=== PATIENT | female | born 1995 | race Caucasian/White ===

== ENCOUNTER 2017-04-10 11:33 | Emergency (ER) | payer OTHER ==
[~2017-04-10] VITALS: Ht 152.4 cm; Wt 55.1 kg
[2017-04-10 11:34] VITALS: BP 153/94
--- NOTE | 2017-04-10 11:35 | NUR ---
PT [id number] WITH EVEN AND STEADY GAIT; RR EVEN AND UNLABORED; PT TO LOBBY AWAITING OPEN BED.
--- NOTE | 2017-04-10 13:09 | NUR ---
PATIENT WALKED TO BED 11
--- NOTE | 2017-04-10 13:23 | NUR ---
Pt placed in room 11, here for anterior chest wall pain 10/10 heavy in sensation, started in the last hour or two while doing nothing with mild sob, pain non radaiting-denies any numbness/tingling, no fever/chills. Resp even and unlabored, in NAD. skin w/d/i. denies any medical history or previous episodes of chest pain. waiting for ER MD mosqueda. Mother atbedside, pt instructed to provide urine specimen, cup given.
--- NOTE | 2017-04-10 14:31 | NUR ---
URINE COLLETED, NEG FOR PREG, DIPSTICK RECORDED
--- NOTE | 2017-04-10 15:42 | NUR ---
Patient discharged with v/s stable. Written and verbal after care instructions given and explained. Patient verbalized understanding. Ambulatory with steady gait. All questions addressed prior to discharge. Advised to follow up with PMD.
[2017-04-10 15:43] VITALS: BP 118/72
== END 2017-04-10 15:42 | disposition home or self-care (01) ==
LOC: MED 11:40
DX: R07.89 Other chest pain (principal); R06.02 Shortness of breath
CPT/HCPCS: 71045; 81002; 81025; 93005; 99284; Q0092

== ENCOUNTER 2017-08-22 00:15 | Emergency (ER) | payer OTHER ==
[~2017-08-22] VITALS: Ht 152.4 cm; Wt 57.6 kg
[2017-08-22 00:22] VITALS: BP 147/105
--- NOTE | 2017-08-22 01:40 | NUR ---
PT TO ER BED 4
--- NOTE | 2017-08-22 01:40 | NUR ---
22/F C/O 10/ CHEST PAIN RADIAITING TO LEFT ARM,PRESSURE LIKE, NONPROVOKED X 2100. C/O LEFT ARM NUMBNESS, REPORTS NAUSEA. SKIN IS WARM AND DRY, NONDIAPHORETIC. DENIES PMH/RX
[2017-08-22 03:46] LABS: BASOPHILS # (AUTO) 0.1 K/uL (0.00-0.22); BASOPHILS % (AUTO) 0.7 % (0.0-2.0); EOSINOPHILS # (AUTO) 0.3 K/uL (0-0.4); EOSINOPHILS % (AUTO) 3.1 % (0.0-4.0); HEMATOCRIT 41.7 % (36-48); HEMOGLOBIN 13.9 g/dL (12.0-16.0); LYMPHOCYTES # (AUTO) 3.3 K/uL (2.5-16.5); MEAN CORPUSCULAR HEMOGLOBIN 30 pg (27-31); MEAN CORPUSCULAR HGB CONC 33 g/dL (33-37); MONOCYTES # (AUTO) 0.9 K/uL (0.8-1.0); MONOCYTES % (AUTO) 9.4 % (1.7-9.3); NEUTROPHILS # (AUTO) 5.1 K/uL (1.8-7.7); NEUTROPHILS % (AUTO) 52.8 % (42.2-75.2); PLATELET COUNT (AUTO) 284 K/uL (140-450); RED BLOOD CELL COUNT(AUTO) 4.58 MIL/uL (4.20-5.40); RED CELL DISTRIBUTION WIDTH 13.4 % (11.6-13.7); WHITE BLOOD COUNT (AUTO) 9.6 K/uL (4.8-10.8)
--- NOTE | 2017-08-22 03:52 | NUR ---
Dr. Gomez evaluating patient at bedside.
[2017-08-22 04:03] LABS: ANION GAP 11.8 (8-16); CARBON DIOXIDE 26.3 mmol/L (21-32); POTASSIUM 4.1 mmol/L (3.5-5.1)
[2017-08-22 04:07] LABS: ALBUMIN 3.8 g/dL (3.4-5.0); TOTAL BILIRUBIN 0.3 mg/dL (0.0-1.0)
[2017-08-22 04:49] VITALS: BP 147/105
== END 2017-08-22 04:49 | disposition home or self-care (01) ==
LOC: MED 00:15
DX: F41.0 Panic disorder [episodic paroxysmal anxiety] (principal); F41.1 Generalized anxiety disorder
CPT/HCPCS: 36415; 80053; 81002; 81025; 84484; 85025; 93005; 99285

== ENCOUNTER 2018-11-27 08:17 | Emergency (ER) | payer MEDICAID, OTHER ==
[~2018-11-27] VITALS: Ht 152.4 cm; Wt 60.3 kg
[2018-11-27 08:25] VITALS: BP 131/85
--- NOTE | 2018-11-27 08:25 | NUR ---
PT MOTHER INSITING ON KEEPING HER CURTAIN OPEN SO WE "DONT FORGET ABOUT HER". I INFORMED HER THAT FOR PATIENT PRIVACY, NOT ONLY HER DAUGHTERS PRIVACY BUT ALL OTHER PATIENTS IN ER AT THIS TIME, WE NEED TO HAVE THE CURTAIN CLOSED. MOTHER IS VERBALLY ABUSIVE AND YANKING ON THE CURTAIN, TELLING ME "GET OUT OF HERE." DR. VILLARREAL ENTERED THE ROOM DURING THIS TIME TO ASSESS THE PT.
--- NOTE | 2018-11-27 08:40 | NUR ---
C/O GENERALIZED ABD PAIN 10/10 AND SHARP BEGINING THIS MORNING ACCOMANIED BY NAUSEA. DENIES VOMITING/DIARRHEA/CONSTIPATION/FEVER, DYSURIA. PT REPORTS FEELING SLIGHTLY MORE PAIN TO LUQ/LLQ BUT THERE IS CONSTANT PAIN ON BOTH SIDES. LBM 11/26/18, REGULAR PER PT. LMP 11/22/18. PT IS GUARDED AND MOANING. BOWEL SOUNDS PRESENT X4, ABDOMEN IS FLAT/FIRM, TENDER TO PALPATION. SIDE RAIL UP X1, BED IN LOW POSITION.
[2018-11-27] MEDS ORDERED: NACL 0.9% 1,000 ML IV SCH (08:43)
[2018-11-27] MEDS ORDERED: MORPHINE SULFATE 4 MG/ML SYR IVP ONE ×2 (08:45→10:35)
[2018-11-27] MEDS ORDERED: ONDANSETRON 4 MG/2 ML VIAL IVP ONE (08:45)
[2018-11-27 09:16] LABS: BASOPHILS % (AUTO) 0.3 % (0.0-2.0); EOSINOPHILS # (AUTO) 0.2 K/uL (0-0.4); EOSINOPHILS % (AUTO) 2.4 % (0.0-4.0); HEMATOCRIT 37.7 % (36-48); HEMOGLOBIN 12.7 g/dL (12.0-16.0); LYMPHOCYTES # (AUTO) 1.6 K/uL (2.5-16.5); LYMPHOCYTES % (AUTO) 16.2 % (20.5-51.1); MEAN CORPUSCULAR HEMOGLOBIN 31 pg (27-31); MEAN CORPUSCULAR HGB CONC 34 g/dL (33-37); MEAN CORPUSCULAR VOLUME 90.8 fL (80-94); NEUTROPHILS # (AUTO) 6.9 K/uL (1.8-7.7); NEUTROPHILS % (AUTO) 71.1 % (42.2-75.2); PLATELET COUNT (AUTO) 239 K/uL (140-450); RED BLOOD CELL COUNT(AUTO) 4.16 MIL/uL (4.20-5.40); RED CELL DISTRIBUTION WIDTH 13.9 % (11.6-13.7); WHITE BLOOD COUNT (AUTO) 9.7 K/uL (4.8-10.8)
[2018-11-27 09:26] LABS: ALBUMIN 3.4 g/dL (3.4-5.0); ANION GAP 11.5 (8-16); CARBON DIOXIDE 26.7 mmol/L (21-32); CREATININE 0.9 mg/dL (0.6-1.3); POTASSIUM 4.2 mmol/L (3.5-5.1); TOTAL BILIRUBIN 0.4 mg/dL (0.0-1.0)
--- NOTE | 2018-11-27 09:47 | NUR ---
PT LEFT TO CT
--- NOTE | 2018-11-27 10:41 | NUR ---
PT DOES NOT WANT ANOTHER DOSE OF MORPHINE AT THIS TIME. 0/10 PAIN AT THIS TIME.
[2018-11-27 10:45] LABS: APPEARANCE,URINE HAZY (CLEAR); BILIRUBIN,URINE 1+ (NEGATIVE); BLOOD, URINE TRACE-I (NEGATIVE); COLOR,URINE YELLOW (YELLOW); LEUKOCYTE ESTERASE ,URINE TRACE (NEGATIVE); NITRITE, URINE NEGATIVE (NEGATIVE); UGLUCOSE NEGATIVE (NEGATIVE)
[2018-11-27 10:46] LABS: RBC,URINE 0-5 /HPF (0-5); WBC,URINE 0-5 /HPF (0-5)
[2018-11-27 10:47] LABS: YEAST,URINE Few /HPF (None Seen)
--- NOTE | 2018-11-27 11:25 | NUR ---
PT STATES SHE HAS NO PAIN AT THIS TIME. SISTERS AT BEDSIDE
[2018-11-27 12:30] VITALS: BP 118/74
--- NOTE | 2018-11-27 12:30 | NUR ---
Patient discharged with v/s stable. Written and verbal after care instructions given and explained. Patient alert, oriented and verbalized understanding of instructions. Ambulatory with steady gait. All questions addressed prior to discharge. ID band removed. Patient advised to follow up with PMD. Rx of NORCO, ZOFRAN AND IBUPROFEN given. Patient educated on indication of medication including possible reaction and side effects. Opportunity to ask questions provided and answered.
== END 2018-11-27 12:30 | disposition home or self-care (01) ==
LOC: MED 08:17
DX: N83.202 Unspecified ovarian cyst, left side (principal); K52.9 Noninfective gastroenteritis and colitis, unspecified
CPT/HCPCS: 36415; 74177; 76856; 80053; 81001; 83690; 84703; 85025; 87086; 93976; 96374; 96375; 99284; J2270; J2405; J7030; Q0092; Q9967; 81025

== ENCOUNTER 2019-09-17 22:23 | Emergency (ER) | payer OTHER, SELFPAY ==
[~2019-09-17] VITALS: Ht 154.9 cm; Wt 59.0 kg
[2019-09-17 22:30] VITALS: BP 148/81
[2019-09-17 23:03] VITALS: BP 148/81
== END 2019-09-17 23:03 | disposition home or self-care (01) ==
LOC: EEVIPCON 22:23 → MED 22:23
DX: U07.1 COVID-19 (principal)
CPT/HCPCS: 99283; U0003

== ENCOUNTER 2020-01-03 17:13 | Emergency (ER) | payer OTHER, SELFPAY ==
[~2020-01-03] VITALS: Ht 154.9 cm; Wt 60.3 kg
[2020-01-03 17:17] VITALS: BP 115/66
[2020-01-03 17:51] LABS: BASOPHILS # (AUTO) 0.1 K/uL (0.00-0.22); BASOPHILS % (AUTO) 0.5 % (0.0-2.0); EOSINOPHILS # (AUTO) 0.2 K/uL (0-0.4); EOSINOPHILS % (AUTO) 1.7 % (0.0-4.0); HEMATOCRIT 35.1 % (36-48); HEMOGLOBIN 11.9 g/dL (12.0-16.0); LYMPHOCYTES # (AUTO) 2.1 K/uL (2.5-16.5); LYMPHOCYTES % (AUTO) 20.4 % (20.5-51.1); MEAN CORPUSCULAR HEMOGLOBIN 31 pg (27-31); MEAN CORPUSCULAR HGB CONC 34 g/dL (33-37); MEAN CORPUSCULAR VOLUME 89.8 fL (80-94); MONOCYTES # (AUTO) 0.9 K/uL (0.8-1.0); NEUTROPHILS # (AUTO) 7.2 K/uL (1.8-7.7); NEUTROPHILS % (AUTO) 68.4 % (42.2-75.2); PLATELET COUNT (AUTO) 280 K/uL (140-450); RED BLOOD CELL COUNT(AUTO) 3.91 MIL/uL (4.20-5.40); RED CELL DISTRIBUTION WIDTH 12.7 % (11.6-13.7); WHITE BLOOD COUNT (AUTO) 10.5 K/uL (4.8-10.8)
[2020-01-03 17:52] LABS: APPEARANCE,URINE CLEAR (CLEAR); BILIRUBIN,URINE NEGATIVE (NEGATIVE); BLOOD, URINE TRACE-I (NEGATIVE); COLOR,URINE YELLOW (YELLOW); LEUKOCYTE ESTERASE ,URINE TRACE (NEGATIVE); NITRITE, URINE NEGATIVE (NEGATIVE); PH,URINE 6.5 (5.0-9.0); UGLUCOSE NEGATIVE (NEGATIVE)
[2020-01-03 18:06] LABS: ANION GAP 16.2 (8-16); CARBON DIOXIDE 21.5 mmol/L (21-32); CREATININE 0.8 mg/dL (0.6-1.3); POTASSIUM 3.7 mmol/L (3.5-5.1)
[2020-01-03] MEDS ORDERED: ACETAMINOPHEN EXTRA STRENGTH 500 MG TAB PO ONE (18:10)
[2020-01-03 18:12] LABS: RBC,URINE 0-5 /HPF (0-5)
--- NOTE | 2020-01-03 18:44 | NUR ---
24 YO FEMALE PT PRESENTS WITH 14 WKS OF C/O INTERMITTENT JOSE SUPRAPUBIC PAIN WITH CRAMPING SENSATION FOR 15 MINS. DENIES N/V/D, VAGINAL BLEEDING, FEVER, OR CHILLS. A0 EVAN: 07/05/2020 PMH: DENIES
[2020-01-03 18:57] VITALS: BP 115/66
== END 2020-01-03 18:57 | disposition home or self-care (01) ==
LOC: MED 17:13
DX: O34.81 Maternal care for other abnormalities of pelvic organs, first trimester (principal); N83.201 Unspecified ovarian cyst, right side; O23.41 Unspecified infection of urinary tract in pregnancy, first trimester; O26.891 Other specified pregnancy related conditions, first trimester; K59.00 Constipation, unspecified; Z3A.13 13 weeks gestation of pregnancy
CPT/HCPCS: 36415; 76801; 80048; 81001; 81025; 84702; 85025; 86900; 86901; 99284; Q0092

== ENCOUNTER 2021-08-06 16:57 | Emergency (ER) | payer OTHER ==
[~2021-08-06] VITALS: Ht 154.9 cm; Wt 69.4 kg
[2021-08-06 17:05] VITALS: BP 121/84
--- NOTE | 2021-08-06 17:08 | NUR ---
PT AMB TO BED 9.
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
[2021-08-06] MEDS ORDERED: ACET-10509 PO (17:33)
[2021-08-06 17:51] VITALS: BP 121/84
--- NOTE | 2021-08-06 17:52 | NUR ---
Patient discharged with v/s stable. Written and verbal after care instructions given FOR HEAD INJURY and explained. Patient alert, oriented and verbalized understanding of instructions. Ambulatory with steady gait. All questions addressed prior to discharge. ID band removed. Patient advised to follow up with PMD. Rx of TYNENOL given. Patient educated on indication of medication including possible reaction and side effects. Opportunity to ask questions provided and answered.
== END 2021-08-06 17:51 | disposition home or self-care (01) ==
LOC: MED 16:57
DX: S09.90XA Unspecified injury of head, initial encounter (principal); Z79.899 Other long term (current) drug therapy; W19.XXXA Unspecified fall, initial encounter; Y93.89 Activity, other specified; Y92.89 Other specified places as the place of occurrence of the external cause; Y99.8 Other external cause status
CPT/HCPCS: 99282

== ENCOUNTER 2023-07-16 02:15 | Emergency (ER) | payer OTHER ==
[~2023-07-16] VITALS: Ht 154.9 cm; Wt 73.9 kg
[~2023-07-16 02:15] MED LIST: ACET-10509 PO
[2023-07-16 02:23] VITALS: BP 111/74; PULSE 62; RESP 15; TEMP 98; O2SAT 98
[2023-07-16 02:38] VITALS: O2SAT 97
[2023-07-16] MEDS ORDERED: IBUPROFEN 600 MG TAB PO ONE (02:45)
[2023-07-16 03:27] VITALS: BP 112/82; PULSE 70; RESP 15; TEMP 97.8; O2SAT 98
== END 2023-07-16 03:04 | disposition home or self-care (01) ==
LOC: MED 02:15
DX: O90.0 Disruption of cesarean delivery wound (principal)
CPT/HCPCS: 99281; 99282